=== PATIENT | male | born 2000 | race Two or more races ===

== ENCOUNTER 2023-12-12 13:59 | Emergency (ER) | payer SELFPAY ==
[2023-12-12] MEDS ORDERED: Lidocaine 1% 5 ML VIAL INJECT ONE (14:05)
[2023-12-12] MEDS ORDERED: Diphtheria,Pertussis(Acell),Tetanus Vaccine 0.5 ML Syringe IM ONE (14:06)
== END 2023-12-12 16:37 | disposition home or self-care (01) ==
LOC: MW.ED 13:59
DX: S61.211A Laceration without foreign body of left index finger without damage to nail, initial encounter (principal); Z23 Encounter for immunization; W31.2XXA Contact with powered woodworking and forming machines, initial encounter
CPT/HCPCS: 12002; 90471; 90715; 99282-25; 99283; J3490

== ENCOUNTER 2023-12-21 10:06 | Emergency (ER) | payer SELFPAY | END 2023-12-21 11:02 | disposition left against medical advice (07) | LOC: MW.ED 10:06 | DX: Z48.02 Encounter for removal of sutures (principal) | CPT/HCPCS: 99281 ==